=== PATIENT | male | born 2005 | race Caucasian/White ===

== ENCOUNTER 2025-02-15 16:20 | Emergency (ER) | payer OTHER, SELFPAY ==
[2025-02-15 16:39] VITALS: BP 144/85
[2025-02-15] MEDS: MOTRIN 600 MG PO (17:50)
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
[2025-02-15] MEDS: PERCOCET 5/325 1 TABLET PO (18:40)
--- NOTE | 2025-02-15 19:51 | ED.ADDNOTE ---
ED Addendum
ED Addendum
ED Addendum Note:
CLARIFICATION OF THE ED NOTE: THE PATIENT HAS A LEFT CLAVICLE FRACTURE (NOT RIGHT).
== END 2025-02-15 18:44 | disposition home or self-care (01) ==
LOC: EMR 16:20
PROVIDERS: EMERGENCY PHYSICIAN Emergency Medicine; FAMILY PHYSICIAN Family Medicine
DX: S42.032A Displaced fracture of lateral end of left clavicle, initial encounter for closed fracture (principal); V86.56XA Driver of dirt bike or motor/cross bike injured in nontraffic accident, initial encounter; Y93.55 Activity, bike riding; J45.909 Unspecified asthma, uncomplicated
CPT/HCPCS: 99283; 73000; 73030